=== PATIENT | female | born 1960 | race Caucasian/White ===

== ENCOUNTER → 2016-06-20 | Outpatient (CLI) | payer BC ==
[2016-06-20 13:40] VITALS: BP 164/80; PULSE 71; RESP 16; TEMP 97.6; BMI 26.5
--- NOTE | 2016-06-20 15:50 | P.HPBAR ---
Bariatric H&P - History & Physicial H&P Date: 06/20/16 History & Physicial: Visit/CC: Band Adj Patient initial contact: Initial weight: 86.183 kg Initial weight in pounds: 190.00 Height: 5 ft 8 in Initial BMI: 28.8 Last weight: Current weight: 79.18 kg Current weight in pounds: 174.00 Current BMI: 26.5 [place] body weight (based on NIH guidelines): 63.503 kg Excess body weight loss: 32.0% The patient is a 55 year-old F who presents for Bariatric Assessment. The patient presents today for lab band follow up. It's been several years since her procedure. Patient states she has gained approximately 40 pounds. Her LAP- BAND was emptied several months ago.. Past Medical History Past Medical History: GERD/Reflux History of Any Multi-Drug Resistant Organisms: None Reported Past Surgical History: Bariatric Surgery, Cholecystectomy, Tubal Ligation Additional Past Surgical History / Comment(s): varicose vein removal, novasure, lap band 2004 Past Anesthesia/Blood Transfusion Reactions: Motion Sickness Past Psychological History: Depression Smoking Status: Current every day smoker Past Alcohol Use History: Occasional Past Drug Use History: None Reported - Past Family History Brother(s) Additional Family Medical History / Comment(s): MS Surgical - Exam Vital Signs Temp Pulse Resp BP 97.6 F 71 16 164/80 06/20/16 13:35 06/20/16 13:35 06/20/16 13:35 06/20/16 13:35 - General well developed, no distress - Eyes PERRL - ENT normal pinna - Neck no masses - Abdomen Abdomen: soft, non tender Bariatric Assessment & Plan Plan: Patient LAP-BAND was adjusted. She had 2 mL added to her band. She was able to water without difficulty. She'll follow-up in one month. Bariatric Checklist Checklist: Plan: Checklist: EGD: 1. Hiatal hernia: 2. H. Pylori: HgbA1c: Vitamin D: Smoking: Current every day smoker Primary care physician referral: Luciana Mendez/[facility] Psychiatry clearance: Cardiology clearance: Sleep study: Diet journal: VTE risk score: VTE risk level: Rehab needs at discharge:
== END | disposition home or self-care (01) ==
LOC: BARWHC3 13:20
PROVIDERS: ATTEND Surgery
DX: Z48.815 Encounter for surgical aftercare following surgery on the digestive system (principal); Z68.26 Body mass index [BMI] 26.0-26.9, adult; Z98.84 Bariatric surgery status; F17.200 Nicotine dependence, unspecified, uncomplicated
CPT/HCPCS: 99212

== ENCOUNTER → 2016-08-29 | Outpatient (CLI) | payer BC ==
[2016-08-29 14:06] VITALS: BP 169/93; PULSE 71; RESP 14; TEMP 98.1; BMI 29.0
--- NOTE | 2016-08-29 14:08 | P.HPBAR ---
Bariatric H&P - History & Physicial H&P Date: 08/29/16 History & Physicial: Visit/CC: band fill Patient initial contact: Initial weight: 86.183 kg Initial weight in pounds: 190.00 Height: 5 ft 7 in Initial BMI: 29.7 Last weight: Current weight: 84.232 kg Current weight in pounds: 185.70 Current BMI: 29.0 [place] body weight (based on NIH guidelines): 61.235 kg Excess body weight loss: 7.8% The patient is a 55 year-old F who presents for Bariatric Assessment. Patient presents today for LAP-BAND adjustment. She has gained pressing 12 pounds. She is wishing to have fluid added to her band. Past Medical History Past Medical History: GERD/Reflux History of Any Multi-Drug Resistant Organisms: None Reported Past Surgical History: Bariatric Surgery, Cholecystectomy, Tubal Ligation Additional Past Surgical History / Comment(s): varicose vein removal, novasure, lap band 2004 Past Anesthesia/Blood Transfusion Reactions: Motion Sickness Past Psychological History: Depression Smoking Status: Current every day smoker Past Alcohol Use History: Occasional Past Drug Use History: None Reported - Past Family History Brother(s) Additional Family Medical History / Comment(s): MS Surgical - Exam Vital Signs Temp Pulse Resp BP 98.1 F 71 14 169/93 08/29/16 13:26 08/29/16 13:26 08/29/16 13:26 08/29/16 13:26 - General well developed, no distress - Eyes PERRL - ENT normal pinna - Neck no masses - Respiratory normal expansion - Cardiovascular Rhythm: regular - Abdomen Abdomen: soft, non tender Bariatric Assessment & Plan Plan: Patient's lap band adjustment. She had 1 mL added to her band. She currently has 3 mL in the band. She'll follow-up in 4 weeks. Bariatric Checklist Checklist: Plan: Checklist: EGD: 1. Hiatal hernia: 2. H. Pylori: HgbA1c: Vitamin D: Smoking: Current every day smoker Primary care physician referral: Luciana Whitfield Psychiatry clearance: Cardiology clearance: Sleep study: Diet journal: VTE risk score: VTE risk level: Rehab needs at discharge:
== END | disposition home or self-care (01) ==
LOC: BARWHC3 13:21
PROVIDERS: ATTEND Surgery
DX: Z48.815 Encounter for surgical aftercare following surgery on the digestive system (principal); Z98.84 Bariatric surgery status; F17.200 Nicotine dependence, unspecified, uncomplicated
CPT/HCPCS: 99212

== ENCOUNTER → 2016-09-26 | Outpatient (CLI) | payer BC ==
[2016-09-26 13:11] VITALS: BP 175/86; PULSE 83; RESP 16; TEMP 97.6; BMI 29.8
--- NOTE | 2016-09-26 16:35 | P.HPBAR ---
Bariatric H&P - History & Physicial H&P Date: 09/26/16 History & Physicial: Visit/CC: Patient initial contact: Initial weight: 86.183 kg Initial weight in pounds: 190.00 Height: 5 ft 7 in Initial BMI: 29.7 Last weight: 186 Current weight: 86.409 kg Current weight in pounds: 190.00 Current BMI: 29.8 [place] body weight (based on NIH guidelines): 61.235 kg Excess body weight loss: 0.0% The patient is a 55 year-old F who presents for Bariatric Assessment. Patient presents today for lab band follow up. Patient hungry. Requesting a fill of her band. Review of Systems Constitutional: Reports as per HPI Past Medical History Past Medical History: GERD/Reflux History of Any Multi-Drug Resistant Organisms: None Reported Past Surgical History: Bariatric Surgery, Cholecystectomy, Tubal Ligation Additional Past Surgical History / Comment(s): varicose vein removal, novasure, lap band 2004 Past Anesthesia/Blood Transfusion Reactions: Motion Sickness Past Psychological History: Depression Smoking Status: Current every day smoker - Past Family History Brother(s) Additional Family Medical History / Comment(s): MS Surgical - Exam Vital Signs Temp Pulse Resp BP 97.6 F 83 16 175/86 09/26/16 13:08 09/26/16 13:08 09/26/16 13:08 09/26/16 13:08 - General well developed, no distress - Neck no masses - Respiratory normal expansion - Cardiovascular Rhythm: regular - Abdomen Abdomen: soft, non tender Bariatric Assessment & Plan Plan: Patient LAP-BAND was just. She had 2 mL added to her LAP-BAND. She will follow -up in one month. Bariatric Checklist Checklist: Plan: Checklist: EGD: 1. Hiatal hernia: 2. H. Pylori: HgbA1c: Vitamin D: Smoking: Current every day smoker Primary care physician referral: Luciana Mendez/[facility] Psychiatry clearance: Cardiology clearance: Sleep study: Diet journal: VTE risk score: VTE risk level: Rehab needs at discharge:
== END | disposition home or self-care (01) ==
LOC: BARWHC3 13:01
PROVIDERS: ATTEND Surgery
DX: Z48.815 Encounter for surgical aftercare following surgery on the digestive system (principal); Z98.84 Bariatric surgery status; Z68.29 Body mass index [BMI] 29.0-29.9, adult; F17.200 Nicotine dependence, unspecified, uncomplicated
CPT/HCPCS: 99212

== ENCOUNTER → 2016-11-14 | Outpatient (CLI) | payer BC ==
[2016-11-14 13:27] VITALS: BP 140/88; PULSE 71; RESP 20; TEMP 97.7; BMI 27.6
--- NOTE | 2016-11-14 14:42 | P.HPBAR ---
Bariatric H&P - History & Physicial H&P Date: 11/14/16 History & Physicial: Visit/CC: may want fluid out Patient initial contact: Initial weight: 86.183 kg Initial weight in pounds: 190.00 Height: 5 ft 7 in Initial BMI: 29.7 Last weight: 191 Current weight: 79.832 kg Current weight in pounds: 176.00 Current BMI: 27.6 [place] body weight (based on NIH guidelines): 61.235 kg Excess body weight loss: 25.4% The patient is a 55 year-old F who presents for Bariatric Assessment. She presents today for LAP-BAND follow-up. She's had some minimal GERD. She is able to control her GERD by eating slowly. Past Medical History Past Medical History: GERD/Reflux History of Any Multi-Drug Resistant Organisms: None Reported Past Surgical History: Bariatric Surgery, Cholecystectomy, Tubal Ligation Additional Past Surgical History / Comment(s): varicose vein removal, novasure, lap band 2004 Past Anesthesia/Blood Transfusion Reactions: Motion Sickness Smoking Status: Current every day smoker - Past Family History Brother(s) Additional Family Medical History / Comment(s): MS Surgical - Exam Vital Signs Temp Pulse Resp BP 97.7 F 71 20 140/88 11/14/16 13:23 11/14/16 13:23 11/14/16 13:23 11/14/16 13:23 - General well developed, no distress - Eyes PERRL - Abdomen Abdomen: soft, non tender Bariatric Assessment & Plan Plan: Mild GERD. Patient is a good weight loss. The patient will be observed. At this point we will not empty her LAP-BAND. She'll follow-up in one month. Bariatric Checklist Checklist: Plan: Checklist: EGD: 1. Hiatal hernia: 2. H. Pylori: HgbA1c: Vitamin D: Smoking: Current every day smoker Primary care physician referral: Luciana Mendez/[facility] Psychiatry clearance: Cardiology clearance: Sleep study: Diet journal: VTE risk score: VTE risk level: Rehab needs at discharge:
== END | disposition home or self-care (01) ==
LOC: BARWHC3 13:11
PROVIDERS: ATTEND Surgery
DX: Z09 Encounter for follow-up examination after completed treatment for conditions other than malignant neoplasm (principal); K21.9 Gastro-esophageal reflux disease without esophagitis; F17.200 Nicotine dependence, unspecified, uncomplicated; Z98.84 Bariatric surgery status
CPT/HCPCS: 99211